=== PATIENT | female | born 1990 | race African-American/Black ===

== ENCOUNTER 2017-11-07 12:27 | Emergency (ER) | payer BC ==
[~2017-11-07] VITALS: Ht 165.1 cm; Wt 64.9 kg
[2017-11-07 12:31] VITALS: BP 131/92
--- NOTE | 2017-11-07 12:39 | NUR ---
PATIENT TO ER BED 2
--- NOTE | 2017-11-07 12:44 | NUR ---
EKG at bedside.
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
[2017-11-07 13:24] LABS: HEMATOCRIT 44.8 % (36-48); MEAN CORPUSCULAR HEMOGLOBIN 30 pg (27-31); MEAN CORPUSCULAR HGB CONC 34 g/dL (33-37); MEAN CORPUSCULAR VOLUME 91 fL (80-94); PLATELET COUNT (AUTO) 289 K/uL (140-450); RED BLOOD CELL COUNT(AUTO) 4.94 MIL/uL (4.20-5.40); RED CELL DISTRIBUTION WIDTH 12.6 % (11.6-13.7); WHITE BLOOD COUNT (AUTO) 6.2 K/uL (4.8-10.8)
[2017-11-07] MEDS ORDERED: DIAZEPAM PFS 10 MG/2 ML SYR IM ONE (13:25)
[2017-11-07 13:45] LABS: LYMPHOCYTES % (MANUAL) 32 % (20-46); MONOCYTES % (MANUAL) 6 % (5-12)
[2017-11-07 13:47] LABS: ALBUMIN 3.7 g/dL (3.4-5.0); ANION GAP 14.4 (8-16); ASPARTATE AMINOTRANSFERASE 16 U/L (15-37); CARBON DIOXIDE 23.9 mmol/L (21-32); CHLORIDE 106 mmol/L (98-107); GFR ARICAN-AMERICAN 87 mL/min (>90); GLUCOSE 98 mg/dL (74-106); POTASSIUM 3.3 mmol/L (3.5-5.1); SODIUM SERUM 141 mmol/L (136-145); TOTAL BILIRUBIN 0.5 mg/dL (0.0-1.0); UREA NITROGEN, BLOOD 11 mg/dL (7-18)
[2017-11-07 13:51] LABS: SALICYLATE < 2.8 mg/dL (2.8-20.0)
--- NOTE | 2017-11-07 13:54 | NUR ---
PT LAYING IN GURNEY SUPINE; MOTHER BY BEDSIDE; PT IS AOX4, RR ARE EVEN AND UNLABORED; WILL CONTINUE TO MONITOR
[2017-11-07] MEDS ORDERED: MIDAZOLAM 2 MG/2 ML VIAL IM ONE ×2 (13:55→17:45)
[2017-11-07 14:14] LABS: BARBITURATE, URINE NEG. ng/ml (NEG <=200); BENZODIAZEPINE, URINE POS. ng/mL (NEG <=200); CANNABINOID, URINE POS. ng/mL (NEG <=50); COCAINE, URINE NEG. ng/mL (NEG <=300); OPIATE, URINE NEG. ng/mL (NEG <=2000); PHENCYCLIDINE SCREEN,URINE NEG. ng/mL (NEG <=25)
[2017-11-07 14:46] LABS: ACETAMINOPHEN < 0.5 ug/ml (10-30)
--- NOTE | 2017-11-07 15:16 | NUR ---
[place] [employer] BY BEDSIDE
--- NOTE | 2017-11-07 15:40 | NUR ---
Suicidial precautions implemented, pt in hospital gown, personal belongings out of room, potentially harmful items removed from room, pt under direct observation of sitter. will continue to monitor.
--- NOTE | 2017-11-07 15:40 | NUR ---
PT PLACED ON 5150 BY [place]
--- NOTE | 2017-11-07 16:40 | NUR ---
PT LAYING IN GURNEY SUPINE; MOTHER BY BEDSIDE; PT IS AOX4, RR ARE EVEN AND UNLABORED; WILL CONTINUE TO MONITOR; SUICIDIAL PRECAUTIONS IN PLACED. SITTER BY BEDSIDE.
--- NOTE | 2017-11-07 17:22 | NUR ---
SPOKE WITH INTAKE NURSE FROM [facility]. PT ACCEPTED TO [facility], ADMITTING MD IS MD MURRY. AWAITING FOR TRANSPORTATION. ER MD [employer] AND [employer] SUPPORT MANAGER NOTIFIED AND AWARE.
[2017-11-07] MEDS ORDERED: traMADol 50 MG TAB PO ONE (17:40)
--- NOTE | 2017-11-07 18:00 | NUR ---
Patient to be transferred to [facility]. Is being transferred due to psychiatry. Receiving facility has accepting physician and available space. ER physician has signed transfer form. Patient or responsible alliance party has agreed to transfer and signed form. Patient belongings inventoried and will be sent with patient. Copy of nursing notes, lab reports, EKG, Physicians Orders and X-rays to be sent with patient. Report called to Graciela Mccormick at receiving facility. [facility] ambulance service has been called for transfer. ETA is 15 mins.
--- NOTE | 2017-11-07 18:00 | NUR ---
Note undone in EDM - 11/07/17 at 1840 by PEDRO Patient to be transferred to [facility]. Is being transferred due to higher level of care. Receiving facility has accepting physician and available space. ER physician has signed transfer form. Patient or responsible green party has agreed to transfer and signed form. Patient belongings inventoried and will be sent with patient. Copy of nursing notes, lab reports, EKG, Physicians Orders and X-rays to be sent with patient. Report called to Graciela Mccormick at receiving facility. [facility] ambulance service has been called for transfer. ETA is 15 mins.
[2017-11-07 18:15] VITALS: BP 127/79
== END 2017-11-07 18:15 | disposition short-term general hospital (02) ==
LOC: MED 12:27
DX: R45.851 Suicidal ideations (principal); F41.9 Anxiety disorder, unspecified; F32.9 Major depressive disorder, single episode, unspecified
CPT/HCPCS: 36415; 80053; 80305; 85025; 93005; 96372; 99285; G0480; G0482; J2250

== ENCOUNTER 2018-05-07 12:21 | Emergency (ER) | payer BC, MEDICAID ==
[~2018-05-07] VITALS: Ht 167.6 cm; Wt 64.9 kg
[2018-05-07 12:29] VITALS: BP 124/84
[2018-05-07 13:21] LABS: APPEARANCE,URINE CLOUDY (CLEAR); BILIRUBIN,URINE NEGATIVE (NEGATIVE); BLOOD, URINE 3+ (NEGATIVE); LEUKOCYTE ESTERASE ,URINE 2+ (NEGATIVE); NITRITE, URINE NEGATIVE (NEGATIVE); PH,URINE 7.5 (5.0-9.0); UGLUCOSE NEGATIVE (NEGATIVE)
[2018-05-07 13:24] LABS: BARBITURATE, URINE NEG. ng/ml (NEG <=200); BENZODIAZEPINE, URINE NEG. ng/mL (NEG <=200); CANNABINOID, URINE POS. ng/mL (NEG <=50); COCAINE, URINE NEG. ng/mL (NEG <=300); OPIATE, URINE NEG. ng/mL (NEG <=2000); PHENCYCLIDINE SCREEN,URINE NEG. ng/mL (NEG <=25)
[2018-05-07] MEDS ORDERED: LEVOFLOXACIN 500 MG TAB PO ONE (13:25)
[2018-05-07] MEDS ORDERED: cefTRIAXone 1,000 MG in LIDOCAINE 1% ***ER ONLY *** 2.1 ML IM ONE (13:25)
[2018-05-07] MEDS ORDERED: KETOROLAC 60 MG/2 ML VIAL IM ONE (13:25)
[2018-05-07 13:37] LABS: COLOR,URINE STRAW (YELLOW)
[2018-05-07] MEDS ORDERED: cefTRIAXone 1,000 MG VIAL ONE (13:50)
[2018-05-07 13:57] LABS: WBC,URINE TOO MANY TO COUNT /HPF (0-5)
[2018-05-07 13:58] LABS: RBC,URINE TOO NUMEROUS TO COUN /HPF (0-5)
[2018-05-07] MEDS ORDERED: LIDOCAINE MPF 1% - **ER/OR** 5 ML ONE (14:08)
[2018-05-07 14:35] VITALS: BP 114/66
== END 2018-05-07 14:35 | disposition home or self-care (01) ==
LOC: MED 12:21
DX: N39.0 Urinary tract infection, site not specified (principal); F12.10 Cannabis abuse, uncomplicated
CPT/HCPCS: 80305; 81001; 81025; 87086; 96372; 99284; J0696; J1885; J2001

== ENCOUNTER 2019-05-08 13:19 | Emergency (ER) | payer MEDICAID ==
[~2019-05-08] VITALS: Ht 165.1 cm; Wt 61.2 kg
[2019-05-08 13:25] VITALS: BP 129/84
--- NOTE | 2019-05-08 13:25 | NUR ---
Patient ambulated to bed 12. RN evaluating patient at bedside.
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
--- NOTE | 2019-05-08 13:45 | NUR ---
DR STINSON AT BEDSIDE FOR PT EVALUATION
--- NOTE | 2019-05-08 16:41 | NUR ---
Patient discharged with v/s stable. Written and verbal after care instructions given and explained. Patient verbalized understanding. Ambulatory with steady gait. All questions addressed prior to discharge. Advised to follow up with PMD.
[2019-05-08 16:42] VITALS: BP 125/78
[2019-05-08 17:34] LABS: HEMATOCRIT 35.7 % (36-48); HEMOGLOBIN 12.2 g/dL (12.0-16.0); MEAN CORPUSCULAR VOLUME 94.9 fL (80-94); RED BLOOD CELL COUNT(AUTO) 3.76 MIL/uL (4.20-5.40); WHITE BLOOD COUNT (AUTO) 6.3 K/uL (4.8-10.8)
[2019-05-08 17:35] LABS: BASOPHILS % (AUTO) 0.5 % (0.0-2.0); EOSINOPHILS # (AUTO) 0.1 K/uL (0-0.4); EOSINOPHILS % (AUTO) 1.6 % (0.0-4.0); LYMPHOCYTES # (AUTO) 1.8 K/uL (2.5-16.5); MEAN CORPUSCULAR HEMOGLOBIN 33 pg (27-31); MEAN CORPUSCULAR HGB CONC 34 g/dL (33-37); MONOCYTES # (AUTO) 0.4 K/uL (0.8-1.0); MONOCYTES % (AUTO) 6.4 % (1.7-9.3); NEUTROPHILS # (AUTO) 3.9 K/uL (1.8-7.7); NEUTROPHILS % (AUTO) 62.5 % (42.2-75.2); PLATELET COUNT (AUTO) 363 K/uL (140-450); RED CELL DISTRIBUTION WIDTH 15.1 % (11.6-13.7)
== END 2019-05-08 16:41 | disposition home or self-care (01) ==
LOC: MED 13:19
DX: N93.9 Abnormal uterine and vaginal bleeding, unspecified (principal); R53.1 Weakness; R42 Dizziness and giddiness; R51 Headache; M06.9 Rheumatoid arthritis, unspecified
CPT/HCPCS: 36415; 81025; 84443; 85025; 99283